=== PATIENT | female | born 1950 | race Caucasian/White ===

== ENCOUNTER 2018-06-17 10:40 | Day surgery (SDC) | payer MEDICARE, BC, SELFPAY ==
[2018-06-17] MEDS: PROPARACAINE 0.5% OPHTH SOL 2 DROPS EYE-OP (11:13)
[2018-06-17] MEDS: CATARACT EYE COMPOUND (10 DROPS/SYRINGE) 3 DROPS EYE-OP (11:27)
[2018-06-17 11:28] VITALS: BP 123/70; PULSE 63; RESP 15; TEMP 36.3; O2SAT 99; BMI 31.2
--- NOTE | 2018-06-17 11:34 | SUR.PREOP ---
DIRECTLY AFTER IV START, PT STATED SHE DIDN'T FEEL WELL. PT BECAME PALE IN COLOR. PT MOVED FROM WC TO STRETCHER WITH SBA. PT SUPINE WITH HEAD DOWN. DIRECTLY AFTER THIS, PT STATED SHE FELT MUCH BETTER. COOL CLOTH PLACED OVER FOREHEAD. VITAL SIGNS DURING THIS TIME 108/68, HR 41, SPO2 96% AND RR 15. AFTER LAYING DOWN, PT HR BACK TO HER BASELINE AT 60. PT TALKING TO RN DURING VAGAL EVENT, ANESTHESIA AWARE. PT BACK TO HER BASELINE AT THIS TIME.
--- NOTE | 2018-06-17 12:15 | PM.PREOP ---
Pre-operative Note Interval Note History & Physical reviewed/Exam performed by Physician: Yes Changes to H&P: No
[2018-06-17] MEDS: PHENYLEPHRINE/LIDOCAINE VIAL (OR) 0.2 ML EYE-OP (13:20)
[2018-06-17] MEDS: MOXIFLOXACIN OPHTH DROPS 3 ML BOTTLE 2 DROPS INJ (13:20)
[2018-06-17] MEDS: BALANCED SALT IRRIG SOLN NO.2 500 ML, EPINEPHrine 1 MG IRR (13:21)
[2018-06-17] MEDS: CHONDROIDTIN/SOD HYALURONATE 1.05 ML SYRINGE INTRAOCULA (13:21)
[2018-06-17] MEDS: TETRACAINE 0.5% OPHTH DROPS 4 ML 2 DROPS EYE-RIGHT (13:22)
[2018-06-17] MEDS: LIDOCAINE 2% INJ SDV 5 ML INJ (13:22)
--- NOTE | 2018-06-17 13:39 | PM.OP.1 ---
Procedure & Clinicians Procedure: Cataract extraction with intraocular lens implant, right Indications: Visually significant cataract, nuclear and cortical spoking, right Surgeon: Yonny Ruiz Click Yes if Unassisted: Yes Anesthesia Type: MAC +/- Operative Notes Procedure in detail: The patient was brought to the operating suite. The correct patient, surgical site and lens were confirmed. 0.5 % tetracaine drops were placed in the right eye. The patient was prepped and draped in the typical sterile manner. A lid speculum was placed in the eye. 2% lidocaine was placed on the eye. A paracentesis port was created with a side-port blade. 0.1 mL of 1% preservative free lidocaine with phenylephrine was injected into the anterior chamber. Viscoelastic was injected into the anterior chamber. A 2.4mm keratome was used to create a clear corneal temporal incision. Cystotome and Utrata forceps were used to create a continuous curvilinear capsulorrhexis. Balanced salt solution was used to hydrodissect the nucleus. Phacoemulsification was used to remove the lens. The capsular bag was inflated with viscoelastic. A Mcgovern ZBOO 22.5D lens was inserted into the capsule. Viscoelastic was removed and the wound hydrated. The wound was found to be leak free and the eye was assessed to be at normal physiologic pressure. 0.1mL Vigamox was injected into the anterior chamber. The lid speculum was removed and the patient left the operating room in excellent condition. Complications: none Condition: stable Disposition: same day surgery
[2018-06-17 13:45] VITALS: BP 119/70; PULSE 62; RESP 15; TEMP 36.2; O2SAT 98
== END 2018-06-17 13:56 ==
LOC: OR 10:44
PROVIDERS: PCP Family Medicine; Visit Provider Ophthalmology
DX: H25.11 Age-related nuclear cataract, right eye (principal)
CPT/HCPCS: J0171; J2250; J2704; J3010

== ENCOUNTER 2018-08-26 08:41 | Day surgery (SDC) | payer MEDICARE, BC, SELFPAY ==
[2018-08-26 09:51] VITALS: BP 142/69; PULSE 59; RESP 15; TEMP 36.4; O2SAT 100; BMI 31.6
[2018-08-26] MEDS: PROPARACAINE 0.5% OPHTH SOL 2 DROPS EYE-OP (09:59)
[2018-08-26] MEDS: CATARACT EYE COMPOUND (10 DROPS/SYRINGE) 3 DROPS EYE-OP (10:01)
--- NOTE | 2018-08-26 11:42 | PM.PREOP ---
Pre-operative Note Interval Note History & Physical reviewed/Exam performed by Physician: Yes Changes to H&P: No
[2018-08-26] MEDS: PHENYLEPHRINE/LIDOCAINE VIAL (OR) 0.2 ML EYE-OP (11:50)
[2018-08-26] MEDS: MOXIFLOXACIN OPHTH DROPS 3 ML BOTTLE 2 DROPS INJ (11:51)
[2018-08-26] MEDS: CHONDROIDTIN/SOD HYALURONATE 1.05 ML SYRINGE INTRAOCULA (11:52)
[2018-08-26] MEDS: BALANCED SALT IRRIG SOLN NO.2 500 ML, EPINEPHrine 1 MG IRR (11:53)
[2018-08-26] MEDS: TETRACAINE 0.5% OPHTH DROPS 4 ML 2 DROPS EYE-LEFT (11:54)
[2018-08-26] MEDS: BALANCED SALT IRRIG SOLN NO.2 15 ML IRR (11:54)
--- NOTE | 2018-08-26 12:07 | PM.OP.1 ---
Procedure & Clinicians Procedure: Cataract extraction with intraocular lens implant, left Same procedure as scheduled: Yes Indications: Visually significant cataract, left Surgeon: Yonny Ruiz Click Yes if Unassisted: Yes Anesthesia Type: MAC +/- Operative Notes Procedure in detail: The patient was brought to the operating suite. The correct patient, surgical site and lens were confirmed. 0.5 % tetracaine drops were placed in the left eye. The patient was prepped and draped in the typical sterile manner. A lid speculum was placed in the eye. 2% lidocaine was placed on the eye. A paracentesis port was created with a side-port blade. 0.1 mL of 1% preservative free lidocaine with phenylephrine was injected into the anterior chamber. Viscoelastic was injected into the anterior chamber. A 2.6mm keratome was used to create a clear corneal temporal incision. Cystotome and Utrata forceps were used to create a continuous curvilinear capsulorrhexis. Balanced salt solution was used to hydrodissect the nucleus. Phacoemulsification was used to remove the lens. The capsular bag was inflated with viscoelastic. A Mcgovern ZBOO +23.5D lens was inserted into the capsule. Viscoelastic was removed and the wound hydrated. The wound was found to be leak free and the eye was assessed to be at normal physiologic pressure. 0.1mL Vigamox was injected into the anterior chamber. The lid speculum was removed and the patient left the operating room in excellent condition. Complications: none Condition: stable Disposition: same day surgery
[2018-08-26 12:15] VITALS: BP 137/72; PULSE 64; RESP 16; TEMP 36.8; O2SAT 100
[2018-08-26 12:16] VITALS: BP 123/72; PULSE 60; RESP 15; TEMP 36.4; O2SAT 100
== END 2018-08-26 12:35 ==
LOC: OR 08:42
PROVIDERS: PCP Family Medicine; Visit Provider Ophthalmology
DX: H26.8 Other specified cataract (principal)
CPT/HCPCS: J0171; J2250; J2704; J3010

== ENCOUNTER → 2018-12-16 11:36 | Outpatient (CLI) | payer MEDICARE, BC, SELFPAY ==
--- NOTE | 2018-12-16 | DI.RAD.S_ITS ---
PROCEDURE: XR HIP W PEL IF DONE LT 2V INDICATIONS: LEFT HIP PAIN TECHNIQUE: AP pelvis with lateral View(s) of the left hip(s). COMPARISON: None. FINDINGS: Bones: No acute fracture or dislocation. An ill-defined 1.1 cm sclerotic focus is present within the left acetabulum. There is mild left hip joint space narrowing. Soft tissues: The visualized bowel gas pattern is normal. No suspicious soft tissue calcifications. IMPRESSION: Ill-defined sclerotic lesion within the left acetabulum which may represent a small bone island. No prior studies are available. If there is focal pain in this region, further characterization with MRI could be used. Alternatively, followup imaging in 3 months is recommended to ensure stability. Dictated by: Suellen Candelaria M.D. on 12/16/2018 at 12:37 Approved by: Suellen Candelaria M.D. on 12/16/2018 at 12:38
== END ==
PROVIDERS: PCP Family Medicine; Visit Provider Family Medicine
DX: Z78.0 Asymptomatic menopausal state (principal); M25.552 Pain in left hip; M89.9 Disorder of bone, unspecified; R29.890 Loss of height
CPT/HCPCS: 73502; 77080

== ENCOUNTER → 2019-03-09 08:52 | Outpatient (CLI) | payer MEDICARE, BC, SELFPAY ==
--- NOTE | 2019-03-09 | DI.MG.S_ITS ---
BILATERAL DIGITAL SCREENING MAMMOGRAM 3D/2D WITH CAD: 03/09/2019 CLINICAL: Routine screening. Comparison is made to exams dated: 11/11/2012 mammogram, 04/02/2015 mammogram, and 11/04/2017 mammogram - [facility]. There are scattered fibroglandular elements in both breasts. Current study was also evaluated with a Computer Aided Detection (CAD) system. There is a mole marker on both breasts. No significant masses, calcifications, or other findings are seen in either breast. There has been no significant interval change. IMPRESSION: NEGATIVE There is no mammographic evidence of malignancy. A 1 year screening mammogram is recommended. This exam was interpreted at Station ID: [id number]. NOTE: For mammograms, a report in lay terms will be sent to the patient. Approximately 15% of breast malignancies will not be visualized mammographically. In the management of a palpable breast mass, a negative mammogram must not discourage biopsy of a clinically suspicious lesion. Electronically Signed By: Eduar fischer/pari:03/09/2019 16:36:27 letter sent: Normal Exam ACR BI-RADS Category 1: Negative 3341F
== END ==
PROVIDERS: PCP Family Medicine; Visit Provider Family Medicine
DX: Z12.31 Encounter for screening mammogram for malignant neoplasm of breast (principal)
CPT/HCPCS: 77063; 77067

== ENCOUNTER → 2019-05-06 11:22 | Outpatient (CLI) | payer MEDICARE, BC, SELFPAY ==
--- NOTE | 2019-05-06 | DI.RAD.S_ITS ---
PROCEDURE: XR HIP W PEL IF DONE LT 2V INDICATIONS: Other specified disorders of bone, unspecified site TECHNIQUE: AP pelvis with lateral view(s) of the left hip(s). COMPARISON: [facility], , XR HIP W PEL IF DONE LT 2V, 12/16/2018, 11:41. FINDINGS: Bones: No fractures or dislocations. Pelvic ring appears intact. No suspicious bony lesions. Lower lumbar spondylosis. Mild bilateral hip degeneration. Presumed bone island projecting in the left acetabular roof as before Degenerative changes seen at the pubis symphysis Soft tissues: The visualized bowel gas pattern is normal. No suspicious soft tissue calcifications. IMPRESSION: Mild bilateral hip joint degeneration, grossly unchanged Dictated by: Compa Baptiste M.D. on 05/06/2019 at 12:31 Approved by: Compa Baptiste M.D. on 05/06/2019 at 12:33
== END ==
PROVIDERS: PCP Family Medicine; Visit Provider Family Medicine
DX: M89.8X9 Other specified disorders of bone, unspecified site (principal); M16.0 Bilateral primary osteoarthritis of hip; M47.816 Spondylosis without myelopathy or radiculopathy, lumbar region
CPT/HCPCS: 73502

== ENCOUNTER → 2020-04-17 08:59 | Outpatient (CLI) | payer MEDICARE, BC, SELFPAY | PROVIDERS: PCP Family Medicine; Referring Provider Family Medicine; Visit Provider Family Medicine | DX: Z13.820 Encounter for screening for osteoporosis (principal); Z78.0 Asymptomatic menopausal state | CPT/HCPCS: 77080 ==

== ENCOUNTER → 2021-02-12 09:58 | Outpatient (CLI) | payer MEDICARE, BC, SELFPAY ==
[2021-02-12 19:24] LABS: Add Manual Diff / Slide Review NO; Basophils Absolute Auto 100 /uL (0-100); Eosinophils Absolute Auto 200 /uL (0-450); Eosinophils Percent Auto 3.3 % (2-4); Hematocrit 42.7 % (36-46); Hemoglobin 14.3 g/dL (12.0-16.0); Lymphocytes Absolute Auto 1300 /uL (1100-4500); Lymphocytes Percent Auto 18.9 % (25-40); Mean Corpuscular HGB Conc 33.4 % (30-36); Mean Corpuscular Hemoglobin 30.6 PG (26-34); Mean Corpuscular Volume 91.6 fL (80-100); Monocytes Absolute Auto 600 /uL (0-900); Monocytes Percent Auto 9.3 % (3-14); Neutrophils Absolute Auto 4500 /uL (1500-7000); Neutrophils Percent Auto 67.5 % (50-75); Platelet Count 299 X10^3/uL (150-400); Red Blood Cell Count 4.66 X10^6/uL (4.0-5.2); Red Cell Distribution Width 13.9 % (11.6-14.8); White Blood Cell Count 6.7 X10^3/uL (4.5-11.0)
[2021-02-12 19:27] LABS: Cholesterol 219 mg/dL (140-199); HDL Cholesterol 67 mg/dL (40-60); LDL Cholesterol Calculated 131 mg/dL (<100); Triglycerides 106 mg/dL (35-150)
[2021-02-12 19:28] LABS: Alanine Aminotransferase 22 IU/L (<35); Albumin 4.3 g/dL (3.5-5.0); Albumin Globulin Ratio 1.6 (1.0-2.8); Alkaline Phosphatase 84 U/L (38-126); Aspartate Aminotransferase 27 IU/L (14-36); Bilirubin Total 0.7 mg/dL (0.2-1.3); Blood Urea Nitrogen 13 mg/dL (7-17); Calcium 9.7 mg/dL (8.4-10.2); Carbon Dioxide 31 mmol/L (22-32); Chloride 105 mmol/L (98-107); Estimated Glomerular Filt Rate > 60.0 mL/min (>60); Globulin 2.7 g/dL (1.7-4.1); Glucose 101 mg/dL (80-110); HEMOLYSIS 15 (0-50); Potassium 4.6 mmol/L (3.4-5.1); Sodium 142 mmol/L (137-145)
[2021-02-12 19:58] LABS: Thyroid Stimulating Hormone 2.14 uIU/mL (0.47-4.68)
== END ==
PROVIDERS: PCP Family Medicine; Visit Provider Family Medicine
DX: R53.83 Other fatigue (principal); E78.49 Other hyperlipidemia
CPT/HCPCS: 80053; 80061; 84443; 85025

== ENCOUNTER → 2021-06-20 14:37 | Outpatient (CLI) | payer MEDICARE, BC, SELFPAY | PROVIDERS: PCP Family Medicine; Referring Provider Physician Assistant; Visit Provider Physician Assistant | DX: N89.8 Other specified noninflammatory disorders of vagina (principal); Z78.0 Asymptomatic menopausal state; Z12.4 Encounter for screening for malignant neoplasm of cervix | CPT/HCPCS: 87798; 87801 ==

== ENCOUNTER → 2021-09-26 08:41 | Outpatient (CLI) | payer MEDICARE, BC, SELFPAY ==
--- NOTE | 2021-09-26 13:57 | DI.MG.S_ITS ---
BILATERAL DIGITAL SCREENING MAMMOGRAM 3D/2D WITH CAD: 09/26/2021 CLINICAL: Routine screening. Comparison is made to exams dated: 03/09/2019 mammogram - [facility], 11/04/2017 mammogram, and 04/02/2015 mammogram - [facility]. There are scattered fibroglandular elements in both breasts. Current study was also evaluated with a Computer Aided Detection (CAD) system. There are benign calcifications in both breasts. No significant masses, calcifications, or other findings are seen in either breast. There has been no significant interval change. IMPRESSION: BENIGN There is no mammographic evidence of malignancy. A 1 year screening mammogram is recommended. This exam was interpreted at Station ID: [id number]. NOTE: For mammograms, a report in lay terms will be sent to the patient. Approximately 15% of breast malignancies will not be visualized mammographically. In the management of a palpable breast mass, a negative mammogram must not discourage biopsy of a clinically suspicious lesion. Electronically Signed By: Matheus fritz/pari:09/26/2021 16:13:28 letter sent: Normal Exam ACR BI-RADS Category 2: Benign Finding(s) 3342F
== END ==
PROVIDERS: PCP Family Medicine; Referring Provider Physician Assistant; Visit Provider Physician Assistant
DX: Z12.31 Encounter for screening mammogram for malignant neoplasm of breast (principal)
CPT/HCPCS: 77063; 77067

== ENCOUNTER → 2022-03-20 09:54 | Outpatient (CLI) | payer MEDICARE, BC, SELFPAY ==
[2022-03-20 19:37] LABS: Add Manual Diff / Slide Review NO; Basophils Absolute Auto 100 /uL (0-100); Basophils Percent Auto 1.5 % (0-2); Eosinophils Absolute Auto 200 /uL (0-450); Eosinophils Percent Auto 3.5 % (2-4); Hematocrit 40.3 % (36-46); Hemoglobin 13.7 g/dL (12.0-16.0); Lymphocytes Absolute Auto 1200 /uL (1100-4500); Lymphocytes Percent Auto 19.6 % (25-40); Mean Corpuscular HGB Conc 33.9 % (30-36); Mean Corpuscular Hemoglobin 30.8 PG (26-34); Mean Corpuscular Volume 90.8 fL (80-100); Monocytes Absolute Auto 700 /uL (0-900); Monocytes Percent Auto 10.6 % (3-14); Neutrophils Absolute Auto 4100 /uL (1500-7000); Neutrophils Percent Auto 64.8 % (50-75); Platelet Count 321 X10^3/uL (150-400); Red Blood Cell Count 4.43 X10^6/uL (4.0-5.2); Red Cell Distribution Width 13.3 % (11.6-14.8); White Blood Cell Count 6.3 X10^3/uL (4.5-11.0)
[2022-03-20 19:41] LABS: Alanine Aminotransferase 20 IU/L (<35); Albumin 4.1 g/dL (3.5-5.0); Albumin Globulin Ratio 1.5 (1.0-2.8); Alkaline Phosphatase 78 U/L (38-126); Aspartate Aminotransferase 23 IU/L (14-36); BUN Creatinine Ratio 14.7 (6-22); Bilirubin Total 0.7 mg/dL (0.2-1.3); Blood Urea Nitrogen 10 mg/dL (7-17); Calcium 9.2 mg/dL (8.4-10.2); Carbon Dioxide 27 mmol/L (22-32); Chloride 104 mmol/L (98-107); Cholesterol 185 mg/dL (140-199); Estimated Glomerular Filt Rate > 60 mL/min (>60); Globulin 2.7 g/dL (1.7-4.1); Glucose 88 mg/dL (80-110); HDL Cholesterol 59 mg/dL (40-60); HEMOLYSIS 19 (0-50); LDL Cholesterol Calculated 115 mg/dL (<100); Potassium 4.6 mmol/L (3.4-5.1); Sodium 140 mmol/L (137-145); Total Protein 6.8 g/dL (6.3-8.2); Triglycerides 55 mg/dL (35-150)
== END ==
PROVIDERS: PCP Family Medicine; Visit Provider Physician Assistant
DX: E78.5 Hyperlipidemia, unspecified (principal); R53.83 Other fatigue; F41.9 Anxiety disorder, unspecified
CPT/HCPCS: 80053; 80061; 85025

== ENCOUNTER → 2022-10-22 16:25 | Outpatient (CLI) | payer MEDICARE, BC, SELFPAY | PROVIDERS: PCP Physician Assistant; Visit Provider Physician Assistant | DX: R39.89 Other symptoms and signs involving the genitourinary system (principal) | CPT/HCPCS: 87086 ==

== ENCOUNTER → 2022-10-28 15:32 | Outpatient (CLI) | payer MEDICARE, BC, SELFPAY ==
--- NOTE | 2022-10-28 15:33 | DI.US.S_ITS ---
PROCEDURE: US PELVIC COMPLETE INDICATIONS: PELVIC FULLNESS/SUPRAPUBIC PAIN TECHNIQUE: Real-time scanning was performed of the pelvic organs, with image documentation. Additional endovaginal scanning was necessary due to incomplete visualization of the adnexal and endometrial structures by transabdominal scanning. COMPARISON: None. FINDINGS: . Uterus: Uterus is anteverted and normal in size at 5.2 x 4.5 x 2.5 cm. The myometrium is heterogeneous. The endometrium measures 2.3 mm combined thickness. There is a probable small endometrial polyp measuring 0.8 x 0.7 x 0.4 cm. It is nonvascular Ovaries: Not well seen, possibly secondary to involutional change and overlying bowel gas. Other: No pathologic free abdominal or pelvic fluid. IMPRESSION: 1. Question small endometrial polyp. 2. Otherwise unremarkable study. We strive to produce accurate, complete, and clear reports of imaging services. To assist us in improving patient care, this report was composed using standard report templates and voice recognition software. Therefore, it may contain abnormal punctuation, insertions and/or omissions. Occasional wrong-word or sound-alike substitutions may occur. Though we review the report and make efforts to correct it, we do recommend that the report be read carefully in proper context to recognize any text inaccuracies. Dictated by: Mark Anthony Gutierrez M.D. on 10/28/2022 at 17:06 Approved by: Mark Anthony Gutierrez M.D. on 10/28/2022 at 17:10
== END ==
PROVIDERS: PCP Physician Assistant; Referring Provider Physician Assistant; Visit Provider Physician Assistant
DX: R10.2 Pelvic and perineal pain (principal); R19.00 Intra-abdominal and pelvic swelling, mass and lump, unspecified site
CPT/HCPCS: 76830; 76856

== ENCOUNTER → 2023-09-01 08:23 | Outpatient (CLI) | payer MEDICARE, BC, SELFPAY ==
[2023-09-01 21:11] LABS: Add Manual Diff / Slide Review NO; Basophils Absolute Auto 0 /uL (0-100); Basophils Percent Auto 0.6 % (0-2); Eosinophils Absolute Auto 100 /uL (0-450); Eosinophils Percent Auto 2.4 % (2-4); Hematocrit 41.7 % (36-46); Lymphocytes Absolute Auto 900 /uL (1100-4500); Lymphocytes Percent Auto 15.6 % (25-40); Mean Corpuscular HGB Conc 33.5 % (30-36); Mean Corpuscular Hemoglobin 30.8 PG (26-34); Mean Corpuscular Volume 92.2 fL (80-100); Monocytes Absolute Auto 600 /uL (0-900); Monocytes Percent Auto 10.7 % (3-14); Neutrophils Absolute Auto 4100 /uL (1500-7000); Neutrophils Percent Auto 70.7 % (50-75); Platelet Count 324 X10^3/uL (150-400); Red Blood Cell Count 4.52 X10^6/uL (4.0-5.2); Red Cell Distribution Width 13.7 % (11.6-14.8); White Blood Cell Count 5.8 X10^3/uL (4.5-11.0)
[2023-09-01 21:46] LABS: Alanine Aminotransferase 33 IU/L (<35); Albumin 4.1 g/dL (3.5-5.0); Albumin Globulin Ratio 1.6 (1.0-2.8); Alkaline Phosphatase 90 U/L (38-126); Aspartate Aminotransferase 30 IU/L (14-36); BUN Creatinine Ratio 16.7 (6-22); Bilirubin Total 0.8 mg/dL (0.2-1.3); Blood Urea Nitrogen 10 mg/dL (7-17); Calcium 9.7 mg/dL (8.4-10.2); Carbon Dioxide 28 mmol/L (22-32); Chloride 107 mmol/L (98-107); Cholesterol 207 mg/dL (140-199); Estimated Glomerular Filt Rate > 60 mL/min (>60); Globulin 2.5 g/dL (1.7-4.1); Glucose 95 mg/dL (80-110); HDL Cholesterol 75 mg/dL (40-60); HEMOLYSIS < 15 (0-50); LDL Cholesterol Calculated 119 mg/dL (<100); Potassium 4.6 mmol/L (3.4-5.1); Sodium 139 mmol/L (137-145); Total Protein 6.6 g/dL (6.3-8.2); Triglycerides 65 mg/dL (35-150)
[2023-09-01 23:05] LABS: TSH w/ Reflex to FT4 1.51 uIU/mL (0.47-4.68)
== END ==
PROVIDERS: PCP Family Medicine; Visit Provider Physician Assistant
DX: E78.5 Hyperlipidemia, unspecified (principal); R25.2 Cramp and spasm; R03.0 Elevated blood-pressure reading, without diagnosis of hypertension; G60.9 Hereditary and idiopathic neuropathy, unspecified; R53.83 Other fatigue
CPT/HCPCS: 80053; 80061; 84443; 85025

== ENCOUNTER → 2024-04-20 09:59 | Outpatient (CLI) | payer MEDICARE, BC, SELFPAY ==
--- NOTE | 2024-04-20 10:33 | EKG_ITS ---
[facility] [place] [id number] [place] [address] Test Date: 2024-04-20 Pat Name: Crystal Holcomb Department: Room: Gender: Female Cloth Hand: : 1950 Requested By: Order Number: [id number] Reading MD: Bridger Casillas Measurements Intervals [place] Rate: 58 P: 47 [place]: 144 QRS: 15 QRSD: 94 T: 43 QT: 434 QTc: 426 Interpretive Statements Sinus bradycardia with marked sinus arrhythmia with occasional premature ventricular complexes with ventricular escape complexes Possible Lateral infarct , age undetermined Electronically Signed On 04-20-2024 14:10:13 PST by Bridger Casillas
[2024-04-20 11:09] LABS: Add Manual Diff / Slide Review NO; Basophils Absolute Auto 200 /uL (0-100); Basophils Percent Auto 2.6 % (0-2); Eosinophils Absolute Auto 100 /uL (0-450); Eosinophils Percent Auto 1.8 % (2-4); Hematocrit 40.5 % (36-46); Hemoglobin 13.8 g/dL (12.0-16.0); Lymphocytes Absolute Auto 1600 /uL (1100-4500); Lymphocytes Percent Auto 26.5 % (25-40); Mean Corpuscular HGB Conc 34.1 % (30-36); Mean Corpuscular Hemoglobin 31.1 PG (26-34); Mean Corpuscular Volume 91.1 fL (80-100); Monocytes Absolute Auto 600 /uL (0-900); Monocytes Percent Auto 9.4 % (3-14); Neutrophils Absolute Auto 3700 /uL (1500-7000); Neutrophils Percent Auto 59.7 % (50-75); Platelet Count 321 X10^3/uL (150-400); Red Blood Cell Count 4.45 X10^6/uL (4.0-5.2); Red Cell Distribution Width 13.7 % (11.6-14.8); White Blood Cell Count 6.2 X10^3/uL (4.5-11.0)
[2024-04-20 11:20] LABS: Hemoglobin A1C% w Est Avg Glu 5.3 % (4.0-6.0)
[2024-04-20 11:59] LABS: BUN Creatinine Ratio 15.9 (6-22); Blood Urea Nitrogen 11 mg/dL (7-17); Calcium 9.7 mg/dL (8.4-10.2); Carbon Dioxide 27 mmol/L (22-32); Chloride 105 mmol/L (98-107); Estimated Glomerular Filt Rate > 60 mL/min (>60); Glucose 98 mg/dL (80-110); HEMOLYSIS < 15 (0-50); Potassium 4.6 mmol/L (3.4-5.1); Sodium 138 mmol/L (137-145)
[2024-04-20 12:45] LABS: Appearance Urine UA CLEAR; Bilirubin Urine UA NEGATIVE (NEGATIVE); Color Urine UA YELLOW; Glucose Urine UA NEGATIVE (Negative); Ketones Urine UA NEGATIVE (NEGATIVE); Leukocyte Esterase Urine UA NEGATIVE (NEGATIVE); Nitrite Urine UA NEGATIVE (Negative); Occult Blood Urine UA NEGATIVE (Negative); Protein Urine UA NEGATIVE (Negative); Specific Gravity Urine UA <=1.005 (1.000-1.035); Urobilinogen Urine UA 0.2 E.U./dL (0.2)
[2024-04-20 12:48] LABS: pH Urine UA 6.5 (4.5-8.0)
[2024-04-20 12:49] LABS: Urine Volume 10mL (spun)
[2024-04-20 12:51] LABS: Bacteria Urine None Seen; Culture Indicated Urine Cult Not Indicated; RBC Urine None Seen (0-5/HPF); Squamous Epithelial Cell Urine None Seen (0-5/HPF); WBC Urine None Seen (0-5/HPF)
== END ==
PROVIDERS: PCP Family Medicine; Referring Provider Orthopaedic Surgery; Visit Provider Orthopaedic Surgery
DX: Z01.818 Encounter for other preprocedural examination (principal); R73.9 Hyperglycemia, unspecified; Z01.812 Encounter for preprocedural laboratory examination; N39.0 Urinary tract infection, site not specified
CPT/HCPCS: 36415; 80048; 81001; 83036; 85025; 93005

== ENCOUNTER → 2025-02-03 08:53 | Outpatient (CLI) | payer MEDICARE, BC, SELFPAY ==
--- NOTE | 2025-02-03 08:55 | DI.RAD.S_ITS ---
PROCEDURE: XR DEXA AXIAL SKELETON INDICATIONS: breast cancer screen COMPARISON: [facility], CR, XR DEXA AXIAL SKELETON, 04/17/2020, 9:27. FINDINGS: Lumbar Spine: Bone mineral density 1.097 (previously 1.313) g/cm2, T score 0.7 (previously 1.1). Left Femoral Neck: Bone mineral density 0.718 (previously 0.941) g/cm2, T score -1.2 (previously -0.7). Left Hip: Bone mineral density 0.881 (previously 1.019) g/cm2, T score -0.5 (previously 0.1). Fracture Risk Calculation (when applicable): 10-year fracture risk of a major osteoporotic fracture 9.7 percent and of a hip fracture 1.5 percent. (T score greater or equal to -1.0 to: NORMAL) (T score from -1.1 to -2.4: OSTEOPENIA) (T score less than or equal to -2.5: OSTEOPOROSIS) IMPRESSION: Osteopenia--- recommend repeat DEXA in 2-3 years for reassessment. Follow-up guidelines as follows: Osteoporosis: Consider a repeat DEXA and Vertebral Fracture Assessment (VFA) exam in 2 years or sooner if medically necessary, to reassess this patient's status. Osteopenia: Consider a repeat DEXA in 2-3 years to reassess this patient's status, or if there is a new clinical indication. Normal: Consider a repeat DEXA in 5 years or sooner, or if there is a new clinical indication. All treatment decisions require clinical judgment and consideration of individual patient factors, including patient preferences, comorbidities, previous drug use, risk factors not captured in the FRAX model (e.g., frailty, falls, vitamin D deficiency, increased bone turnover, interval significant decline in bone density ) and possible under- or over-estimation of fracture risk by FRAX. In addition, the NOF Guide recommends that FDA-approved medical therapies be considered in postmenopausal women and men age >= 50 years with a: * Hip or vertebral (clinical or morphometric) fracture * T-score of <=-2.5 at the spine or hip * Ten-year fracture probability by FRAX of >= 3% for hip fracture or >=20% for major osteoporotic fracture. Dictated by: Mariusz Jackson M.D. on 02/05/2025 at 21:41 Approved by: Mariusz Jackson M.D. on 02/05/2025 at 21:45
--- NOTE | 2025-02-03 08:55 | DI.MG.S_ITS ---
MM screening mammo BI: 02/03/2025. BI-RADS: 2 CLINICAL: 74-year old female for bilateral screening mammogram. Tyrer-Cuzick lifetime risk of 3.3%. No personal or first-degree family history of breast cancer. PRIOR EXAMS 09/26/2021, 03/09/2019. MAMMOGRAPHY TECHNIQUE: 2D and 3D (tomosynthesis) digital mammographic views obtained, with additional images as needed for full coverage. Current study was also evaluated with a Computer Aided Detection (CAD) system. DENSITY B. There are scattered areas of fibroglandular density. MAMMOGRAPHY FINDINGS Bilateral: Benign-appearing calcifications noted. There are no suspicious masses, calcifications, or other findings in the breast. IMPRESSION: * No evidence of malignancy with benign findings. RECOMMENDATIONS Bilateral * Annual screening mammography. OVERALL ASSESSMENT CATEGORY BI-RADS-2: Benign. The [employer] recommends annual screening mammography beginning at age 40 for women with average risk of breast cancer. ELECTRONICALLY SIGNED: Ivet Garza M.D. on 02/04/2025 at 12:19:37 AM PT Interpreting Station ID: [id number]
--- NOTE | 2025-02-03 08:55 | DI.ECHO.S_ITS ---
[facility] +---------+ [facility] : : [address] [place] : : [id number] : : Phone: [phone] Echocardiogram Report + + :Name: MARGAUX XIAO Study Date: 02/03/2025 Height: 76 in : :Hospital ReadingLocation: Weight: 175 lb : : Gender: Female BSA: 2.1 m2 : :: 1950 Age: 74 yrs BP: 132/83 mmHg: :Reason For Study: Fatigue : :Ordering Physician: HECTOR, : :EZEKIEL Performed By: Junior Ley : :Referring: EZEKIEL YOUNG : + + Interpretation Summary The ejection fraction is estimated to be 55-60%. Normal diastolic function. The right ventricle is normal in size and function. Pulmonary artery pressures cannot be estimated because of the lack of a measurable TR jet velocity but the IVC suggests a CVP of around 3 mmHg. No significant valvular abnormalities. Procedure: A two-dimensional transthoracic echocardiogram with color flow and Doppler was performed. The study quality was technically adequate. There is no prior echocardiogram noted for this patient. The patient was in a bradycardic rhythm during the exam. Left Ventricle: The left ventricle is normal in size. Left ventricular wall thickness is mildly increased. Left ventricular systolic function is normal. The ejection fraction is estimated to be 55-60%. There are no focal wall motion abnormalities. Normal diastolic function. Right Ventricle: The right ventricle is normal in size and function. Atria: The left atrial size is normal. Right atrial size is normal. There is no Doppler evidence for an interatrial shunt. Mitral Valve: The mitral valve leaflets appear to open well. There is no mitral valve stenosis. There is trace mitral regurgitation. Aortic Valve: The aortic valve is trileaflet. The aortic valve opens well. There is no aortic valve stenosis. No aortic regurgitation is present. Tricuspid Valve: The tricuspid valve is not well visualized, but is grossly normal. There is trace tricuspid regurgitation. Pulmonary artery pressures cannot be estimated because of the lack of a measurable TR jet velocity but the IVC suggests a CVP of around 3 mmHg. Pulmonic Valve: The pulmonic valve is not well seen, but is grossly normal. There is trace pulmonic regurgitation. Great Vessels: The aortic root is normal size. The ascending aorta is normal in size. The aortic arch could not be visualized. The IVC is of normal diameter and collapses greater than 50% with a sniff. This suggests a low right atrial pressure of 3 mm Hg. Pericardium/ Pleura There is no pericardial effusion. MMode/2D Measurements & Calculations LVIDd: 4.3 cm LVOT diam: 2.2 cm LVIDs: 3.2 cm Ao root diam: 3.4 cm FS: 25.1 % asc Aorta Diam: 3.3 cm IVSd: 1.3 cm LVPWd: 1.3 cm LV matthew. diameter/BSA (cm/m^2): 2.1 LV sys. diameter/BSA (cm/m^2): 1.5 LA A2 area: 21.2 cm2 RA long axis: 5.7 cm LA A4 area: 21.6 cm2 RA area: 18.5 cm2 LA length (vol): 5.6 cm RA vol: 50.5 ml LA vol: 69.1 ml RA : 24.1 ml/m2 LA vol index: 33.0 ml/m2 IVC diam: 1.9 cm RVD1 (basal): 3.9 cm RVD2 (mid): 3.2 cm TAPSE: 2.0 cm Doppler Measurements & Calculations Ao V2 max: 122.0 cm/sec LVOT Max Christiano: 93.7 cm/sec Ao V2 mean: 89.3 cm/sec LV V1 max P.5 mmHg Ao max P.0 mmHg LV V1 VTI: 23.7 cm Ao mean P.6 mmHg SCOTT(I,D): 2.9 cm2 Ao V2 VTI: 30.6 cm SCOTT(V,D): 2.9 cm2 sev ratio: 0.77 SCOTT indexed to BSA (cm^2/m^2): 1.4 MV E max christiano: 56.0 cm/sec TR max christiano: 209.8 cm/sec MV A max christiano: 44.8 cm/sec TR max P.6 mmHg MV E/A: 1.3 PA V2 max: 89.9 cm/sec Med Peak E' Christiano: 7.3 cm/sec PA V2 mean: 58.5 cm/sec E/E' med: 7.7 PA mean P.6 mmHg Lat Peak E' Christiano: 9.4 cm/sec PA pr(Accel): 7.1 mmHg E/E' lat: 6.0 E/e' average: 6.8 MV dec time: 0.23 sec SV(LVOT): 88.5 ml Reading Physician:10:18 AM
[2025-02-03 10:09] LABS: Alanine Aminotransferase 28 IU/L (<35); Albumin 4.5 g/dL (3.5-5.0); Albumin Globulin Ratio 1.7 (1.0-2.8); Alkaline Phosphatase 80 U/L (38-126); Blood Urea Nitrogen 13 mg/dL (7-17); Calcium 9.3 mg/dL (8.4-10.2); Carbon Dioxide 25 mmol/L (22-32); Chloride 107 mmol/L (98-107); Cholesterol 215 mg/dL (140-199); Estimated Glomerular Filt Rate > 60 mL/min (>60); Globulin 2.7 g/dL (1.7-4.1); Glucose 97 mg/dL (70-99); HDL Cholesterol 73 mg/dL (40-60); HEMOLYSIS < 15 (0-50); Potassium 4.4 mmol/L (3.4-5.1); Sodium 139 mmol/L (137-145); Total Protein 7.2 g/dL (6.3-8.2); Triglycerides 64 mg/dL (35-150)
[2025-02-03 10:57] LABS: TSH w/ Reflex to FT4 1.83 uIU/mL (0.47-4.68)
== END ==
PROVIDERS: PCP Physician Assistant Medical; Referring Provider Physician Assistant Medical; Visit Provider Physician Assistant Medical
DX: Z12.31 Encounter for screening mammogram for malignant neoplasm of breast (principal); Z13.6 Encounter for screening for cardiovascular disorders; R00.1 Bradycardia, unspecified; M85.852 Other specified disorders of bone density and structure, left thigh; N95.9 Unspecified menopausal and perimenopausal disorder
CPT/HCPCS: 36415; 77063; 77067; 77080; 80053; 80061; 84443; 93306

== ENCOUNTER → 2025-03-15 09:10 | Outpatient (CLI) | payer MEDICARE, BC, SELFPAY ==
--- NOTE | 2025-03-16 09:07 | DI.NM.S_ITS ---
DATE OF SERVICE: 03/15/2025 PROCEDURE: Exercise stress test. INDICATIONS: Chest pain with underlying hyperlipidemia. CARDIAC STRESS: The patient underwent exercise stress test under the supervision of an attending staff using standard Erwin protocol. She walked on Erwin protocol for 8 minutes and 9 seconds, achieved maximum heart rate of 140, which was 96% of target heart rate. Resting blood pressure 152/90 and peak blood pressure 166/90. Baseline rhythm was sinus. During stress, no convincing ischemic EKG changes seen, no significant arrhythmias, no chest pain. She had shortness of breath. Normal recovery. CONCLUSION: Exercise stress test is negative for inducible ischemia. Excellent exercise tolerance. DANIELITO -47%. Baseline hypertensive with blood pressure 152/90. Peak blood pressure 166/90. No significant arrhythmias. No chest pain. Normal recovery. Overall, low-risk exercise stress test. LupeCrystal callaway - BRENDA/reuben/SC doc#: [id number]/job#: [id number] dd: 03/15/2025 17:04:00 dt: 03/15/2025 18:07:00 DICTATING /COPIES TO: Terra Marshall MD COPIES MNE: [place];
== END ==
LOC: NUCM 09:11
PROVIDERS: PCP Physician Assistant Medical; Referring Provider Physician Assistant Medical; Visit Provider Physician Assistant Medical
DX: R00.1 Bradycardia, unspecified (principal); R03.0 Elevated blood-pressure reading, without diagnosis of hypertension; R53.83 Other fatigue
CPT/HCPCS: 93017